=== PATIENT | female | born 1975 | race Caucasian/White ===

== ENCOUNTER 2020-06-20 13:06 | Outpatient (CLI) | payer BC, OTHER | END 2020-06-20 13:07 | disposition home or self-care (01) | LOC: BICMRI 13:06 | PROVIDERS: ATTEND Nurse Practitioner Family | DX: M54.12 Radiculopathy, cervical region (principal); M43.12 Spondylolisthesis, cervical region | CPT/HCPCS: 72141 ==

== ENCOUNTER 2020-07-23 13:06 | Outpatient (CLI) | payer BC, OTHER | END 2020-07-23 13:07 | disposition home or self-care (01) | LOC: BICMRI 13:06 | PROVIDERS: ATTEND Specialist | DX: M47.26 Other spondylosis with radiculopathy, lumbar region (principal); M51.16 Intervertebral disc disorders with radiculopathy, lumbar region; M47.27 Other spondylosis with radiculopathy, lumbosacral region | CPT/HCPCS: 72148 ==

== ENCOUNTER 2021-09-19 10:06 | Outpatient (CLI) | payer BC, OTHER | END 2021-09-19 10:07 | disposition home or self-care (01) | LOC: BICMAMMO 10:06 | PROVIDERS: ATTEND Registered Nurse | DX: Z12.31 Encounter for screening mammogram for malignant neoplasm of breast (principal) | CPT/HCPCS: 77063; 77067 ==

== ENCOUNTER 2022-10-31 15:24 | Outpatient (CLI) | payer BC, OTHER | END 2022-10-31 15:25 | disposition home or self-care (01) | LOC: BICMAMMO 15:24 | PROVIDERS: ATTEND Registered Nurse | DX: Z12.31 Encounter for screening mammogram for malignant neoplasm of breast (principal) | CPT/HCPCS: 77063; 77067 ==

== ENCOUNTER 2023-11-20 15:23 | Outpatient (CLI) | payer BC, OTHER | END 2023-11-20 15:24 | disposition home or self-care (01) | LOC: BICMAMMO 15:23 | PROVIDERS: ATTEND Registered Nurse | DX: Z12.31 Encounter for screening mammogram for malignant neoplasm of breast (principal) | CPT/HCPCS: 77063; 77067 ==

== ENCOUNTER 2024-10-20 14:10 | Outpatient (CLI) | payer BC, OTHER | END 2024-10-20 14:11 | disposition home or self-care (01) | LOC: SCSMRI 14:10 | PROVIDERS: ATTEND Registered Nurse | DX: M43.12 Spondylolisthesis, cervical region (principal); M47.812 Spondylosis without myelopathy or radiculopathy, cervical region; M48.03 Spinal stenosis, cervicothoracic region | CPT/HCPCS: 72141 ==